=== PATIENT | male | born 1985 | race Caucasian/White ===

== ENCOUNTER 2016-08-19 12:22 | Emergency (ER) | payer SELFPAY ==
[~2016-08-19] VITALS: Ht 177.8 cm; Wt 86.2 kg
[~2016-08-19 12:22] MED LIST: ACYC800T PO; CYCL10TA2 PO; HYDR-971 PO; NAPR500T8 PO; PRED50TA PO
[2016-08-19 12:36] VITALS: BP 147/82
[2016-08-19] MEDS ORDERED: SULF1TAB24 PO (13:26)
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
== END 2016-08-19 13:35 | disposition home or self-care (01) ==
LOC: ER 12:22
DX: T23.202A Burn of second degree of left hand, unspecified site, initial encounter (principal); L08.9 Local infection of the skin and subcutaneous tissue, unspecified; F17.210 Nicotine dependence, cigarettes, uncomplicated; F12.10 Cannabis abuse, uncomplicated; X08.8XXA Exposure to other specified smoke, fire and flames, initial encounter; Y93.89 Activity, other specified; Y92.89 Other specified places as the place of occurrence of the external cause; Y99.8 Other external cause status
CPT/HCPCS: 99283

== ENCOUNTER 2016-09-23 13:38 | Emergency (ER) | payer SELFPAY ==
[~2016-09-23] VITALS: Ht 170.2 cm; Wt 86.2 kg
[~2016-09-23 13:38] MED LIST changes: +SULF1TAB24 PO
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
[2016-09-23 16:21] VITALS: BP 131/81
== END 2016-09-23 16:20 | disposition home or self-care (01) ==
LOC: ER 13:38
DX: F10.10 Alcohol abuse, uncomplicated (principal); R51 Headache; F12.10 Cannabis abuse, uncomplicated; F14.10 Cocaine abuse, uncomplicated; Y90.9 Presence of alcohol in blood, level not specified
CPT/HCPCS: 99283